=== PATIENT | female | born 1935 | race Caucasian/White ===

== ENCOUNTER → 2020-01-04 13:44 | Outpatient (CLI) | payer MEDICARE, SELFPAY ==
--- NOTE | ~2020-01-04 | MM_ITS ---
EXAMINATION: MM screening [facility]ath BI w josé miguel HISTORY: Screening mammogram TECHNIQUE: Craniocaudal and mediolateral oblique 3-D tomosynthesis images were obtained and synthetic 2-D images were generated. CAD analysis was submitted and interpreted. COMPARISON: Comparison to multiple prior studies sequentially, with oldest reviewed study dated 03/2015. BREAST PARENCHYMAL COMPOSITION: There are scattered areas of fibroglandular density. FINDINGS: Stable benign-appearing left breast masses. There is no evidence of suspicious mass, calcif ication, or architectural distortion to suggest malignancy in either breast. There has been no suspic ious interval change. IMPRESSION: 1. No mammographic evidence of malignancy. 2. Recommend routine screening mammography in one year. BI-RADS Category 2: Benign finding(s). Reviewed, dictated and finalized at location A.
== END ==
PROVIDERS: PCP Family Medicine Adolescent Medicine; Visit Provider Obstetrics & Gynecology
DX: Z12.31 Encounter for screening mammogram for malignant neoplasm of breast (principal)
CPT/HCPCS: 77063; 77067

== ENCOUNTER 2020-03-15 16:18 | Emergency (ER) | payer MEDICARE, SELFPAY ==
--- NOTE | ~2020-03-15 | XR_ITS ---
XR nasal bones min 3V DATE: 03/15/2020 17:01 INDICATION: Fall. Nose injury, pain TECHNIQUE: Left and right lateral views and [place] projection COMPARISON: None FINDINGS: Minimally displaced nasal bone fracture. The anterior maxillary spine is intact. IMPRESSION: Minimally displaced nasal bone fracture Reviewed, dictated and finalized at location A.
[2020-03-15 16:26] VITALS: BP 188/87; PULSE 109; RESP 20; TEMP 37.2; O2SAT 99
--- NOTE | 2020-03-15 16:37 | ED.WOUNDLAC ---
HPI - Wound/Laceration General Chief Complaint: Wound/Laceration Stated Complaint: Fall/Busted nose Time Seen by Provider: 03/15/20 16:37 Source: patient Mode of arrival: ambulatory Limitations: no limitations History of Present Illness HPI narrative: Loraine Barr is a 84 yo female with a PMH of arthritis, depression, who fell grinding across the grass after leaving work and hit her face on the sidewalk. Patient nose is bleeding from a very small lack on the bridge of her nose, her l right nostril shows evidence of having blood at the time of the incident. EMS was called she did not lose consciousness she has some bruising is beginning to show around her eyes abrasion across her forehead no plaques on her palms are on her knees. Rage concerns around the bleeding. Denies any neck pain or other facial pain Related Data Home Medications Medication Instructions Recorded Confirmed diclofenac sodium 75 mg 75 mg PO BID 07/26/19 03/15/20 tablet,delayed release fluoxetine 10 mg capsule 20 mg PO DAILY 07/26/19 03/15/20 fluticasone furoate 50 inh INHALATION DAILY 07/26/19 mcg/actuation blister powder for inhalation trazodone 50 mg tablet 50 mg PO TID 07/26/19 03/15/20 Allergies Allergy/AdvReac Type Severity Reaction Status Date / Time Sulfa (Sulfonamide Allergy Mild Rash Verified 09/06/19 12:55 Antibiotics) sulfamethoxazole Allergy Mild Rash Verified 09/06/19 12:55 codeine Allergy Unknown N/V Verified 09/06/19 12:55 nitrofurantoin Allergy Unknown Unknown Verified 09/06/19 12:55 nystatin Allergy Unknown Unknown Verified 09/06/19 12:55 Penicillins Allergy Unknown RASH, SEE Verified 09/06/19 12:55 TEXT Review of Systems Review of Systems: Narrative: CONSTITUTIONAL: Denies fever, chills, sweats. EYES: Denies visual changes, redness, discharge. ENT: Denies rhinorrhea, congestion, sore throat, otalgia. CARDIOVASCULAR: Denies chest pain, palpitations, edema. RESPIRATORY: Denies dyspnea, wheezing, cough GASTROINTESTINAL: Denies abdominal pain, nausea, vomiting, diarrhea. GENITOURINARY: Denies dysuria, hematuria, abnormal discharge SKIN: Denies rash or itching. Abrasion across face on the forehead and bridge of nose; tiny puncture across bridge of nose NEUROLOGIC: Denies numbness, or focal weakness. PSYCHIATRIC: Denies anxiety or depression. [facility] Past Medical History Medical History Arthritis Depression Osteoporosis Social History Social History Smoking status: Never smoker Alcohol intake: never Additional occupation/education comments: Library Gender identity (if verbalized by the patient): Female Comments At time of signature, I agree with nursing past medical, surgical, social and family history. There is no relevant family history pertinent to the presenting complaint. Exam Narrative: Exam Narrative: GENERAL: This is a well-nourished, well-developed patient, in moderate distress. HEAD: normocephalic, atraumatic. EYES: Sclera clear/white. Vision is grossly intact. EARS: External ears normal. Hearing grossly intact. NOSE: External nose normal without nasal discharge, nares without redness, no rhinorrhea. Right nostril has old blood not actively bleeding; bridge of nose has puncture that was bleeding, it is bruised around puncture and up onto her forehead, noted. Denies neck or facial bone pain on palpation THROAT: Mucous membranes moist, NECK: Neck supple, CARDIOVASCULAR: Regular rate and rhythm without murmurs, gallops, or rubs. RESPIRATORY: Clear to auscultation. Breath sounds equal bilaterally. No wheezes, rales, or rhonchi. GASTROINTESTINAL: Abdomen soft, SKIN: warm, intact with no suspicious lesions or rash, good texture and turgor. NEURO: awake, alert, and oriented to person, place and time. There were no obvious focal neurologic abnormalities. Steady gait EXTREMITIES
[2020-03-15] MEDS: TETANUS,DIPHTHERIA,AC PERTUSSIS ADULT (0.5 ML) BOOSTRIX IM (16:42)
== END 2020-03-15 17:17 | disposition home or self-care (01) ==
PROVIDERS: Emergency Provider Nurse Practitioner; PCP Family Medicine Adolescent Medicine
DX: S01.21XA Laceration without foreign body of nose, initial encounter (principal); W19.XXXA Unspecified fall, initial encounter; Z23 Encounter for immunization; M19.90 Unspecified osteoarthritis, unspecified site; F32.9 Major depressive disorder, single episode, unspecified; M81.0 Age-related osteoporosis without current pathological fracture
CPT/HCPCS: 12011; 70160; 90471; 90715; 99213; G0463

== ENCOUNTER → 2021-01-07 13:33 | Outpatient (CLI) | payer MEDICARE, SELFPAY ==
--- NOTE | ~2021-01-07 | MM_ITS ---
EXAMINATION: MM screening [facility] BI w josé miguel HISTORY: Screening mammogram TECHNIQUE: Craniocaudal and mediolateral oblique 3-D tomosynthesis images were obtained and synthetic 2-D images were generated. CAD analysis was submitted and interpreted. COMPARISON: 01/04/2020, 10/27/2018, 10/25/2017 BREAST PARENCHYMAL COMPOSITION: There are scattered areas of fibroglandular density. FINDINGS: There is a left breast mass with biopsy change in the stable mass in the anterior third of inner left breast. There is no evidence of suspicious mass, calcification, or architectural distortio n to suggest malignancy in either breast. There has been no suspicious interval change. IMPRESSION: 1. No mammographic evidence of malignancy. 2. Recommend routine screening mammography while the patient remains in good health. BI-RADS Category 2: Benign finding(s). Reviewed, dictated and finalized at location A. IMPRESSION: 1. No mammographic evidence of malignancy. 2. Recommend routine screening mammography while the patient remains in good he alth. BI-RADS Category 2: Benign finding(s).
== END ==
PROVIDERS: PCP Family Medicine Adolescent Medicine; Visit Provider Obstetrics & Gynecology
DX: Z12.31 Encounter for screening mammogram for malignant neoplasm of breast (principal)
CPT/HCPCS: 77063; 77067

== ENCOUNTER 2021-07-24 07:47 | Outpatient (CLI) | payer MEDICARE, SELFPAY ==
--- NOTE | 2021-07-24 08:48 | ECG_ITS ---
Measurements Intervals [place] Rate: 69 P: 48 [place]: 156 QRS: 16 QRSD: 89 T: 9 QT: 382 QTc: 411 Interpretive Statements SINUS RHYTHM BASELINE ARTIFACT- I, II, AVR, AVL, AVF NORMAL ECG Electronically Signed On 07-24-2021 9:18:18 TALENT ACQUISITION PROGRAM MANAGER by Harsha Monzon D.O.
[2021-07-24 09:19] LABS: Basophils Percent Auto 0.4 % (0.2-1.2); Eosinophils Absolute Auto 0.1 K/mm3 (0-0.3); Eosinophils Percent Auto 1.4 % (0-4.4); Hematocrit 40.5 % (37.0-47.0); Hemoglobin 13.3 g/dL (12.0-15.0); Immature Granulocyte Absolute 0.01 K/mm3 (0.00-0.031); Immature Granulocyte Percent A 0.2 % (0-0.5); Lymphocytes Absolute Auto 1.47 K/mm3 (0.9-3.2); Lymphocytes Percent Auto 26.3 % (18.3-44.2); Mean Corpuscular HGB Conc 32.8 g/dl (32-36); Mean Corpuscular Hemoglobin 30.1 pg (26-34); Mean Corpuscular Volume 91.6 fl (80-100); Mean Platelet Volume 9.8 fl (7.4-10.4); Monocytes Absolute Auto 0.4 K/mm3 (0.1-0.6); Monocytes Percent Auto 6.8 % (2.6-8.5); Neutrophils Absolute Auto 3.6 K/mm3 (1.3-6.7); Neutrophils Percent Auto 64.9 % (45.5-73.1); Platelet Count Result 250 k/mm3 (150-375); Red Blood Count 4.42 M/mm3 (4.2-5.4); Red Cell Distribution Width 14.1 % (11.5-14.5); White Blood Count 5.6 K/mm3 (4.5-10.0)
[2021-07-24 09:28] LABS: Albumin Level 4.6 g/dL (3.5-5.1); Estimated Glomerular Filt Rate 53; Glucose 117 mg/dL (65-110)
[2021-07-24 09:34] LABS: Urine Cotinine NEGATIVE
[2021-07-24 09:42] LABS: Hemoglobin A1C 5.2 % (<5.7)
== END 2021-07-24 07:48 | disposition home or self-care (01) ==
PROVIDERS: PCP Family Medicine Adolescent Medicine; Visit Provider Orthopaedic Surgery
DX: Z01.818 Encounter for other preprocedural examination (principal); M17.12 Unilateral primary osteoarthritis, left knee; Z51.81 Encounter for therapeutic drug level monitoring; Z79.899 Other long term (current) drug therapy
CPT/HCPCS: 80307; 82040; 82565; 82947; 83036; 85025; 87081; 93005

== ENCOUNTER → 2022-03-17 13:49 | Outpatient (CLI) | payer MEDICARE, SELFPAY ==
--- NOTE | ~2022-03-17 | MM_ITS ---
EXAMINATION: MM screening heath BI w josé miguel HISTORY: Screening mammogram TECHNIQUE: Craniocaudal and mediolateral oblique 3-D tomosynthesis images were obtained and synthetic 2-D images were generated. CAD analysis was submitted and interpreted. COMPARISON: 01/07/2021, 01/04/2020, 10/27/2018 bilateral screening mammogram examinations BREAST PARENCHYMAL COMPOSITION: There are scattered areas of fibroglandular density. FINDINGS: Stable circumscribed approximately 12 mm mass in the posterior outer mid left breast with a djacent biopsy marker; history of prior benign biopsy. There is a biopsy marker is noted in the anter ior inner mid left breast. There is no evidence of suspicious mass, calcification, or architectural d istortion to suggest malignancy in either breast. There has been no suspicious interval change. IMPRESSION: 1. No mammographic evidence of malignancy. 2. Recommend routine screening mammography in one year. BI-RADS Category 2: Benign finding(s). Reviewed, dictated and finalized at location A.
== END ==
PROVIDERS: PCP Family Medicine Adolescent Medicine; Visit Provider Obstetrics & Gynecology
DX: Z12.31 Encounter for screening mammogram for malignant neoplasm of breast (principal)
CPT/HCPCS: 77063; 77067

== ENCOUNTER → 2023-04-23 13:24 | Outpatient (CLI) | payer MEDICARE, SELFPAY ==
--- NOTE | ~2023-04-23 | MM_ITS ---
EXAMINATION: MM screening heath BI w josé miguel HISTORY: Screening TECHNIQUE: Craniocaudal and mediolateral oblique 3-D tomosynthesis images were obtained and synthetic 2-D images were generated. CAD analysis was submitted and interpreted. COMPARISON: Comparison to multiple prior studies sequentially, with oldest reviewed study dated 10/22. BREAST PARENCHYMAL COMPOSITION: There are scattered areas of fibroglandular density. FINDINGS: There is a developing asymmetry in the subareolar location of the right breast on MLO view. Stable left breast masses allowing for differences of technique. There are tissue markers from previ ous benign left breast biopsies. IMPRESSION: 1. Developing right breast asymmetry on MLO view. 2. Additional mammographic views and possible breast ultrasound are recommended. BI-RADS Category 0: Incomplete: Needs additional imaging evaluation. Reviewed, dictated and finalized at location A. IMPRESSION: 1. Developing right breast asymmetry on MLO view. 2. Additional mammographic views and possible breast ultrasound are recommended . BI-RADS Category 0: Incomplete: Needs additional imaging evaluation.
== END ==
PROVIDERS: PCP Family Medicine Adolescent Medicine; Visit Provider Family Medicine Adolescent Medicine
DX: Z12.31 Encounter for screening mammogram for malignant neoplasm of breast (principal); R92.8 Other abnormal and inconclusive findings on diagnostic imaging of breast
CPT/HCPCS: 77063; 77067

== ENCOUNTER → 2023-05-25 14:04 | Outpatient (CLI) | payer MEDICARE, SELFPAY ==
--- NOTE | ~2023-05-25 | MMUS_ITS ---
EXAMINATION: MM diagnostic heath RT w josé miguel, US breast RT complete HISTORY: Developing asymmetry reported in subareolar area of right breast on screening MLO view of TECHNIQUE: Additional 3-D tomosynthesis images of the right breast were performed and synthetic 2-D i mages were generated. CAD analysis was submitted and interpreted. High resolution complete right allie st ultrasound examination including all 4 quadrants and subareolar area was performed. COMPARISON: Serial annual screening mammograms dating from 04/23/2023 back to 01/04/2020 FINDINGS: MAMMOGRAPHIC FINDINGS: There is relatively stable appearance of the right breast mammographically. No suspicious mass or arc hitectural distortion is evident mammographically. No malignant calcification, skin thickening or ret raction. ULTRASOUND: 12:00 3 cm from nipple: There is an irregular hypoechoic approximately 2.2 x 3.2 mm area without inte rnal vascularity or posterior shadowing. Ultrasound-guided biopsy is recommended. 11:00 subareolar area: There is an irregular approximately 2.3 x 4.2 mm hypoechoic area with posterio r shadowing. There is suggestion of architectural distortion in this area. Ultrasound-guided biopsy i s recommended. No other significant abnormalities are detected. IMPRESSION: 1. Suspicious small masses at 12:00 3 cm from nipple and 11:00 subareolar area 2. Ultrasound-guided biopsy of these 2 areas is recommended. BI-RADS category 4, suspicious findings. Dr. Cárdenas telephoned the report and ultrasound-guided biopsy recommendations on 05/25/2023 [address] Jacobs. Reviewed, dictated and finalized at location A. AL INSPECTOR IMPRESSION: 1. Suspicious small masses at 12:00 3 cm from nipple and 11:00 subareolar area 2. Ultrasound-guided biopsy of these 2 areas is recommended. BI-RADS category 4, suspicious findings. Dr. Cárdenas telephoned the report and ultrasound-guided biopsy recommendations on 05/25/2023 [address] Jacobs.
== END ==
PROVIDERS: PCP Obstetrics & Gynecology; Visit Provider Family Medicine Adolescent Medicine
DX: R92.8 Other abnormal and inconclusive findings on diagnostic imaging of breast (principal)
CPT/HCPCS: 76641; 77061; 77065; G0279

== ENCOUNTER 2023-06-10 09:20 | Outpatient (CLI) | payer MEDICARE, SELFPAY ==
--- NOTE | ~2023-06-10 | MMUS_ITS ---
EXAMINATION: US breast biopsy RT w image, MM post biopsy invasive RT DATE: 06/10/2023 10:53 (accession [id number]), 06/10/2023 10:59 (accession [id number]) INDICATION: Patient presents for ultrasound-guided biopsy of two sonographically identified right jaswant ast masses. TECHNIQUE AND FINDINGS: With real-time scanning, only the mass described at the 12:00 location, 3 cm from the nipple on recen t ultrasound is identified. No discrete mass is identified at the 11:00 location in the subareolar br east. The risks and potential benefits of the procedure were discussed with the patient including ble eding and infection. A time out was performed. The skin of the right breast was prepared and draped i n usual sterile fashion. 1% lidocaine was used for superficial anesthesia. 1% lidocaine with epinephr ine was used for deep anesthesia. A vacuum-assisted biopsy needle was advanced through to the outer edge of the region of interest from a lateral approach utilizing sonographic guidance. A total of three tissue core samples were obtaine d through the lesion. A tissue marker clip was then placed at the biopsy site. Hemostasis was achieve d. A sterile bandage was applied. The patient tolerated procedure well and there was no evidence of immediate complication. The patient was given verbal instructions to return to the Emergency Department in the event of severe breast pa in or rapid breast enlargement. A two view right breast mammogram was obtained to document tissue mar ker clip placement. IMPRESSION: 1. Successful ultrasound-guided vacuum-assisted biopsy of right breast mass with tissue marker placem ent. Reviewed, dictated and finalized at location A. IED BEHAVIOR SCIENCE SPECIALIST IMPRESSION: 1. Successful ultrasound-guided vacuum-assisted biopsy of right breast mass wit h tissue marker placement.
== END 2023-06-10 09:21 | disposition home or self-care (01) ==
PROVIDERS: PCP Family Medicine Adolescent Medicine; Visit Provider Family Medicine Adolescent Medicine
DX: R92.8 Other abnormal and inconclusive findings on diagnostic imaging of breast (principal)
CPT/HCPCS: 19083; 88305; A4648

== ENCOUNTER 2023-11-03 07:00 | Outpatient (NON) | payer MEDICARE, SELFPAY | END 2023-11-03 07:01 | disposition home or self-care (01) | PROVIDERS: PCP Family Medicine Adolescent Medicine; Visit Provider Internal Medicine Gastroenterology | DX: Z12.11 Encounter for screening for malignant neoplasm of colon (principal); Z83.719 Family history of colon polyps, unspecified | CPT/HCPCS: 88305 ==

== ENCOUNTER 2023-11-03 08:36 | Day surgery (SDC) | payer MEDICARE, SELFPAY ==
[2023-10-28 09:47] VITALS: BMI 29.7
[2023-10-28 13:02] VITALS: BMI 31.2
--- NOTE | 2023-11-03 08:32 | WPDANESEPPF ---
Anes - Initial Pre Proc Eval Procedure: Operation Date: 11/03/23 11:30 Proposed Procedures p Diagnostic Colonoscopy - Colten Lyon MD Date/Time: 11/03/23 08:32 Surgeon: Colten Lyon MD Pre Op Diagnosis: Family HX Malignant Neoplasm of Digestive Organs Patient Data Age: 87 Gender: F Height: 1.55 m Weight: 75 kg Allergies Allergy/AdvReac Type Severity Reaction Status Date / Time Sulfa (Sulfonamide Allergy Mild Rash Verified 11/03/23 10:41 Antibiotics) sulfamethoxazole Allergy Mild Rash Verified 11/03/23 10:41 clindamycin Allergy Unknown Unknown Verified 11/03/23 10:41 codeine Allergy Unknown N/V Verified 11/03/23 10:41 nitrofurantoin Allergy Unknown Unknown Verified 11/03/23 10:41 nystatin Allergy Unknown Unknown Verified 11/03/23 10:41 Penicillins Allergy Unknown SEE TEXT Verified 11/03/23 10:41 Home Medications Medication Instructions Recorded Confirmed Type acetaminophen 500 mg tablet 500 mg PO Q6H PRN Pain 07/24/21 11/03/23 History calcium carbonate 600 mg-vitamin 1 cap PO DAILY 07/24/21 11/03/23 History D3 10 mcg (400 unit) capsule yakdxewi-wiw-wrhzn ac 400 1 tablet PO DAILY 07/24/21 11/03/23 History mcg-calcium carb 500 mg-vit K1 20 mcg tablet trazodone 50 mg tablet 50 mg PO QHS #90 tabs 12/02/22 11/03/23 Rx diclofenac sodium 75 mg 75 mg PO BID #180 tabs 06/22/23 11/03/23 Rx tablet,delayed release fluoxetine 40 mg capsule 40 mg PO DAILY #90 caps 08/04/23 11/03/23 Rx fluticasone propionate 50 See Rx Instructions .Route 09/13/23 11/03/23 Rx mcg/actuation nasal .COMPLEX #48 grams spray,suspension Patient hx anesthesia problems: none Family hx anesthesia problems: none Results Review: All pre-operative results and documents have been reviewed as part of the pre-operative evaluation. [facility] Past Medical History Medical History (Updated 11/03/23 @ 08:33 by Shiva Ackerman, ) Anxiety Arthritis Depression Osteoarthritis of left knee Osteoporosis Panic attack Surgical History Surgical History History of colonoscopy (05/2018) Family History Family History Mother Cerebrovascular accident Hypertension Social History Social History Smoking status: Never smoker Additional smoking assessment comments: DENIES ANY FORM OF TOBACCO USE Alcohol intake: never Substance use type: does not use Lack of Transportation: No Lack of Food: Never True Current Housing: I Have Housing Concerned About Future Housing: No Difficulty Paying Gas/Electric Bills: No Difficulty Paying for Meds: No Currently Unemployed: No Education: High School Diploma/GED Difficulty w/ Childcare or Family Care: No Living arrangements: alone 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 Informed Consent: The patient's anesthetic plan and its attendant risks and benefits were discussed with the patient/family/POA. Questions were solicited and answers provided to the satisfaction of the patient/family/POA.
[2023-11-03 10:55] VITALS: BMI 31.0
[2023-11-03 10:59] VITALS: BP 152/96; PULSE 89; RESP 18; TEMP 37.3; O2SAT 100
[2023-11-03] MEDS: LACTATED RINGERS 1,000 ML 150 ML IV CONT (11:12)
--- NOTE | 2023-11-03 11:21 | PM.HPGS ---
History of Present Illness History of Present Illness Consent: Risks, benefits, and alternatives have been discussed and questions answered. Patient agrees to proceed with procedure. Chief complaint: Family HX Malignant Neoplasm of Digestive Organs Narrative: Loraine Barr is a 87 year old female presents for colonoscopy. Patient reports that her current weight appetite and bowel movements are normal. Patient denies abdominal pain. She has had no bleeding. Family history is significant that her children have had colon polyps, her father had colon polyps, her grandparent had colon cancer. Patient presents today for surveillance colonoscopy. She still is active and works. Review of Systems Review of Systems: All systems reviewed & are unremarkable except as noted in HPI and below PMFSH Past Medical History Medical History (Updated 11/03/23 @ 11:23 by Colten Lyon MD) Anxiety Arthritis Depression Osteoarthritis of left knee Osteoporosis Panic attack Surgical History Surgical History History of colonoscopy (05/2018) Family History Family History Mother Cerebrovascular accident Hypertension Social History Social History Smoking status: Never smoker Additional smoking assessment comments: DENIES ANY FORM OF TOBACCO USE Alcohol intake: never Substance use type: does not use Lack of Transportation: No Lack of Food: Never True Current Housing: I Have Housing Concerned About Future Housing: No Difficulty Paying Gas/Electric Bills: No Difficulty Paying for Meds: No Currently Unemployed: No Education: High School Diploma/GED Difficulty w/ Childcare or Family Care: No Living arrangements: alone 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 Gender identity (if verbalized by the patient): Female Spiritual care concerns: No Meds Home Medications and Allergies Home Medications Medication Instructions Recorded Confirmed Type acetaminophen 500 mg tablet 500 mg PO Q6H PRN Pain 07/24/21 11/03/23 History calcium carbonate 600 mg-vitamin 1 cap PO DAILY 07/24/21 11/03/23 History D3 10 mcg (400 unit) capsule kfdpfhav-iwx-zfrwv ac 400 1 tablet PO DAILY 07/24/21 11/03/23 History mcg-calcium carb 500 mg-vit K1 20 mcg tablet trazodone 50 mg tablet 50 mg PO QHS #90 tabs 12/02/22 11/03/23 Rx diclofenac sodium 75 mg 75 mg PO BID #180 tabs 06/22/23 11/03/23 Rx tablet,delayed release fluoxetine 40 mg capsule 40 mg PO DAILY #90 caps 08/04/23 11/03/23 Rx fluticasone propionate 50 See Rx Instructions .Route 09/13/23 11/03/23 Rx mcg/actuation nasal .COMPLEX #48 grams spray,suspension Allergies Allergy/AdvReac Type Severity Reaction Status Date / Time Sulfa (Sulfonamide Allergy Mild Rash Verified 11/03/23 10:41 Antibiotics) sulfamethoxazole Allergy Mild Rash Verified 11/03/23 10:41 clindamycin Allergy Unknown Unknown Verified 11/03/23 10:41 codeine Allergy Unknown N/V Verified 11/03/23 10:41 nitrofurantoin Allergy Unknown Unknown Verified 11/03/23 10:41 nystatin Allergy Unknown Unknown Verified 11/03/23 10:41 Penicillins Allergy Unknown SEE TEXT Verified 11/03/23 10:41 Vital Signs Vital Signs - 24 hr 11/03/23 10:59 Temperature 99.1 F Pulse Rate 89 Respiratory Rate 18 Blood Pressure 152/96 H Pulse Oximetry 100 Oxygen Delivery Room Air Exam Narrative: Physical exam reveals patient to be alert. Signs stable. HEENT exam is unremarkable. Patient is anicteric. Lungs are clear to auscultation and percussion. Heart is without murmur or extra sounds. Abdomen bowel sounds are present soft nontender with no hepatosplenomegaly. Digital external rectal exam normal. Assessment and Plan Assessment and plan (1) Family history of colonic polyps:
[2023-11-03 11:49] VITALS: BP 151/77; PULSE 91; RESP 16; O2SAT 99
[2023-11-03 11:59] VITALS: BP 130/79; PULSE 78; RESP 16; O2SAT 100
[2023-11-03 12:09] VITALS: BP 146/81; PULSE 84; RESP 16; O2SAT 99
--- NOTE | 2023-11-03 12:11 | SUR.PHASEII ---
1155; PT RUBBING LOW, MIDDLE ABDOMEN. STATES FEELS CRAMPY. PT LAYING ON LEFT SIDE. KNEES UP. WARM FOLDED BLANKET APPLIED TO LOW ABDOMEN. DR CHAVIRA NOTIFIED. HE WENT TO SPEAK WITH PT AND DAUGHTER 1210; PT AWAKE AND ALERT. STATES LOW ABDOMEN FEELS BETTER NOW.
--- NOTE | 2023-11-03 13:28 | WPDANESPN ---
Anes - Prog Note Post-Op Date/Time: 11/03/23 13:28 Cardiovascular status: normal Respiratory status: normal Airway patency: baseline Mental status: baseline Post-Op hydration status: normal Vital Signs: Last Vital Signs Temp 37.3 C 11/03/23 10:59 Pulse 84 11/03/23 12:09 Resp 16 11/03/23 12:09 BP 146/81 H 11/03/23 12:09 Pulse Ox 99 11/03/23 12:09 O2 Del Method Room Air 11/03/23 12:09 Pain Score (VAS): 0 I/O: Intake & Output 11/02/23 11/03/23 11/03/23 23:59 07:59 15:59 Intake Total 150 Balance 150 Post-procedural complaints: none Patient Feedback: Patient satisfied with anesthetic care. Other Findings: Patient vital signs back to baseline. Patient denies nausea and vomiting. Patient's pain under control. Patient OK for discharge.
== END 2023-11-03 12:25 | disposition home or self-care (01) ==
PROVIDERS: PCP Family Medicine Adolescent Medicine; Visit Provider Internal Medicine Gastroenterology
PROC: 0DJD8ZZ Inspection of Lower Intestinal Tract, Via Natural or Artificial Opening Endoscopic (ICD-10-PCS; CPT 45378; principal; 2023-11-03 11:30)
DX: Z83.718 Family history of other colon polyps (principal); Z80.0 Family history of malignant neoplasm of digestive organs; D12.2 Benign neoplasm of ascending colon; K57.30 Diverticulosis of large intestine without perforation or abscess without bleeding; K64.8 Other hemorrhoids
CPT/HCPCS: 45380

== ENCOUNTER 2023-11-04 12:10 | Observation (INO) | payer MEDICARE, SELFPAY ==
--- NOTE | ~2023-11-04 | CT_ITS ---
EXAMINATION: CT abdomen pelvis w con DATE: 11/04/2023 13:17 INDICATION: Abdomen pain post colonoscopy TECHNIQUE: Computed tomography (CT) of the abdomen and pelvis was performed with 100 cc Omnipaque 350 intravenous contrast. The dose-length product was 569.84 mGy-cm. Automated exposure control and iter ative reconstruction technique were employed. COMPARISON: No prior studies for comparison. 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 Heart size normal. No significant pleural or pe ricardial effusion. Fatty infiltration of the liver. Gallbladder contains multiple stones. The spleen , pancreas, adrenal glands and kidneys are unremarkable. 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 There are dilated small bowel loops with air-fluid levels in the left abdomen which t ransitions in a left inguinal hernia. Small amount of fluid present in the hernia sac. No significant vascular abnormality. No lymphadenopathy. Small hiatal hernia. Severe lumbar spondylosis. IMPRESSION: 1. Small bowel obstruction with transition in left inguinal hernia. 2: Cholelithiasis. Reviewed, dictated and finalized at location B.
[2023-11-04 12:25] VITALS: BP 192/72; PULSE 96; RESP 16; TEMP 36.5; O2SAT 97
[2023-11-04 13:07] LABS: Basophils Percent Auto 0.2 % (0.2-1.2); Eosinophils Percent Auto 0.3 % (0-4.4); Hematocrit 40.5 % (37.0-47.0); Hemoglobin 13.4 g/dL (12.0-15.0); Immature Granulocyte Absolute 0.02 K/mm3 (0.00-0.031); Immature Granulocyte Percent A 0.3 % (0-0.5); Lymphocytes Absolute Auto 1.35 K/mm3 (0.9-3.2); Lymphocytes Percent Auto 20.7 % (18.3-44.2); Mean Corpuscular HGB Conc 33.1 g/dl (32-36); Mean Corpuscular Hemoglobin 30.5 pg (26-34); Mean Platelet Volume 9.6 fl (7.4-10.4); Monocytes Absolute Auto 0.4 K/mm3 (0.1-0.6); Monocytes Percent Auto 6.8 % (2.6-8.5); Neutrophils Absolute Auto 4.7 K/mm3 (1.3-6.7); Neutrophils Percent Auto 71.7 % (45.5-73.1); Platelet Count Result 239 k/mm3 (150-375); Red Cell Distribution Width 13.7 % (11.5-14.5); White Blood Count 6.5 K/mm3 (4.5-10.0)
[2023-11-04 13:20] LABS: Estimated CRCL calculation 34 ml/min; Estimated Glomerular Filt Rate 53
[2023-11-04 13:23] LABS: Alanine Aminotransferase 33 U/L (6-35); Albumin Level 4.9 g/dL (3.5-5.1); Alkaline Phosphatase 104 U/L (38-126); Anion Gap 11 mmol/L (4-12); Aspartate Amino Transferase 58 U/L (14-36); Bilirubin,Total 0.7 mg/dL (0.2-1.3); Blood Urea Nitrogen 22 mg/dL (7-17); Calcium 10.4 mg/dL (8.4-10.2); Carbon Dioxide 24 mmol/L (22-30); Chloride 106 mmol/L (98-107); Estimated CRCL calculation 37 ml/min; Estimated Glomerular Filt Rate 60; Glucose 130 mg/dL (65-110); Lactic Acid Reflex 1.1 mmol/L (0.7-2.0); Lipase 105 U/L (23-300); Potassium 3.7 mmol/L (3.4-5.0); Sodium 141 mmol/L (137-145)
--- NOTE | 2023-11-04 13:27 | ED.ABDPAIN ---
HPI - Abdominal Pain General Chief Complaint: Abdominal Pain <Neto Patel APRN - Last Filed: 11/04/23 16:01> Stated Complaint: abdominal pain after colonoscopy <Neto Patel APRN - Last Filed: 11/04/23 16:01> Time Seen by Provider: 11/04/23 12:55 <Neto Patel APRN - Last Filed: 11/04/23 16:01> Source: patient <Neto Patel APRN - Last Filed: 11/04/23 16:01> Mode of arrival: ambulatory <Neto Patel APRN - Last Filed: 11/04/23 16:01> Limitations: no limitations <Neto Patel APRN - Last Filed: 11/04/23 16:01> History of Present Illness HPI narrative: Loraine is an 87-year-old female patient presenting to the clinic today with complaints of left sided abdominal pain/not passing gas after colonoscopy yesterday. Had nausea this morning and belched and that has improved. Denies any vomiting <Neto Patel APRN - Last Filed: 11/04/23 16:01> Related Data Home Medications: Home Medications Medication Instructions Recorded Confirmed acetaminophen 500 mg tablet 500 mg PO Q6H PRN Pain 07/24/21 11/04/23 calcium carbonate 600 mg-vitamin 1 cap PO DAILY 07/24/21 11/04/23 D3 10 mcg (400 unit) capsule tnnprkco-fda-gqbri ac 400 1 tablet PO DAILY 07/24/21 11/04/23 mcg-calcium carb 500 mg-vit K1 20 mcg tablet <Neto Patel APRN - Last Filed: 11/04/23 16:01> Allergies/Adverse Reactions: Allergies Allergy/AdvReac Type Severity Reaction Status Date / Time Sulfa (Sulfonamide Allergy Mild Rash Verified 11/04/23 16:57 Antibiotics) sulfamethoxazole Allergy Mild Rash Verified 11/04/23 16:57 clindamycin Allergy Unknown Unknown Verified 11/04/23 16:57 codeine Allergy Unknown N/V Verified 11/04/23 16:57 nitrofurantoin Allergy Unknown Unknown Verified 11/04/23 16:57 nystatin Allergy Unknown Unknown Verified 11/04/23 16:57 Penicillins Allergy Unknown SEE TEXT Verified 11/04/23 16:57 <Neto Patel APRN - Last Filed: 11/04/23 16:01> Review of Systems Review of Systems: Pertinent positives per HPI. Patient denies any fever, chills, rash, headache, visual changes, dizziness, cough, runny nose, sore throat, shortness of breath, chest pain, palpitations, nausea, vomiting, diarrhea, constipation, or any urinary issues. <Neto Patel APRN - Last Filed: 11/04/23 16:01> [facility] Past Medical History Medical History: Medical History Anxiety Arthritis Depression Osteoarthritis of left knee Osteoporosis Panic attack <Neto Patel APRN - Last Filed: 11/04/23 16:01> Surgical History Surgical History: Surgical History History of colonoscopy (05/2018) <Neto Patel APRN - Last Filed: 11/04/23 16:01> Family History Family History: Family History Mother Cerebrovascular accident Hypertension <Neto Patel APRN - Last Filed: 11/04/23 16:01> Social History Social History: Social History Smoking status: Never smoker Additional smoking assessment comments: DENIES ANY FORM OF TOBACCO USE Alcohol intake: never Substance use: never Substance use type: does not use Do You Feel Safe in your Home?: Yes Lack of Transportation: No Lack of Food: Never True Current Housing: I Have Housing Concerned About Future Housing: No Difficulty Paying Gas/Electric Bills: No Difficulty Paying for Meds: No Currently Unemployed: No Education: High School Diploma/GED Difficulty w/ Childcare or Family Care: No Living arrangements: alone 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
[2023-11-04 14:03] VITALS: BP 179/95; PULSE 85; RESP 20; O2SAT 95
[2023-11-04] MEDS: SODIUM CHLORIDE 0.9% IV 1,000 ML 150 ML IV CONT (14:04)
[2023-11-04 14:23] LABS: Appearance Urine Clear (Clear); Bacteria Urine None Seen /hpf; Bilirubin Urine Negative (Negative); Blood Urine Trace (Negative); Color Urine Yellow (Yellow); Glucose Urine UA Negative (Negative); Ketones Urine 1+ mg/dL (Negative); Leukocyte Esterase Ur 1+ LEU/UL (Negative); Need Manual Microscopic Reviewed; Nitrate Urine Negative (Negative); Non Pathogenic Casts 0-2; Protein Urine Trace mg/dL (Negative); RBC Urine 0-2 /hpf (0-2); Specific Grav Ur 1.044 (1.001-1.035); Squamous Epithelial Cell Urine None Seen /hpf (Few); Urobilinogen Urine 0.2 mg/dL (<2.0); WBC Urine 0-5 /hpf (0-3); pH Urine 5.5 (5.0-9.0)
[2023-11-04 14:24] LABS: Add Urine Microscopic? YES
[2023-11-04] MEDS: ONDANSETRON INJ 4 MG/2 ML VIAL IV PUSH (14:29)
[2023-11-04] MEDS: HYDROmorphone HCL INJ (*CRX) 1 MG/ML SYR 0.5 MG IV PUSH (14:30)
[2023-11-04 15:21] VITALS: PULSE 80; RESP 20; O2SAT 96
[2023-11-04 15:40] VITALS: BP 169/89; PULSE 88; RESP 20; O2SAT 97
--- NOTE | 2023-11-04 16:22 | ADMGEN ---
This patient, Loraine Barr, was admitted to Medical Room 243-01. Patient/family oriented to hospital policies and general routines including ID bracelet, bed and alarms, visiting hours, pain management, procedures, bathroom and other care routines, personal items, smoking policy, room service/diet, and visiting hours. Information on how to activate the Rapid Response Team has been discussed. Patient/Family are encouraged to report perceived risks to care and to ask questions if they do not understand what they are told or what they should do.
[2023-11-04 16:23] VITALS: BP 164/69; PULSE 85; RESP 17; TEMP 36.1; O2SAT 100
[2023-11-04 16:28] VITALS: BMI 39.9
--- NOTE | 2023-11-04 18:28 | PM.IMHP ---
H&P: HPI History of Present Illness Date/Time: 11/04/23 18:28 Chief Complaint: Abdominal pain Narrative: Patient is an 87-year-old woman who had colonoscopy yesterday. Since the colonoscopy, she has not had a bowel movement or passed gas from her rectum. She was having lower abdominal pain and came to the emergency room. Evaluation there included a CT scan which showed an incarcerated left inguinal hernia with small-bowel obstruction due to the incarceration. Patient had no knowledge that she had an inguinal hernia prior to today. With the assistance of the department of anesthesia and some sedation, I was able to reduce the incarcerated hernia in the emergency room. Patient is now admitted for observation. Assuming we do not developed a recurrent incarceration, she can probably be discharged tomorrow with plans for repair of the hernia in the fairly near future as an outpatient. Colonoscopy yesterday did show only a single small sessile ascending colon polyp, likely benign but pathology pending. Review of Systems Review of Systems: All systems reviewed & are unremarkable except as noted in HPI and below (HPI) [facility] Past Medical History Medical History Anxiety Arthritis Depression Osteoarthritis of left knee Osteoporosis Panic attack Surgical History Surgical History History of colonoscopy (05/2018) Family History Family History Mother Cerebrovascular accident Hypertension Social History Social History Smoking status: Never smoker Additional smoking assessment comments: DENIES ANY FORM OF TOBACCO USE Alcohol intake: never Substance use: never Substance use type: does not use Do You Feel Safe in your Home?: Yes Lack of Transportation: No Lack of Food: Never True Current Housing: I Have Housing Concerned About Future Housing: No Difficulty Paying Gas/Electric Bills: No Difficulty Paying for Meds: No Currently Unemployed: No Education: High School Diploma/GED Difficulty w/ Childcare or Family Care: No Living arrangements: alone 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 Gender identity (if verbalized by the patient): Female Spiritual care concerns: No Meds Home Medications and Allergies Home Medications Medication Instructions Recorded Confirmed Type acetaminophen 500 mg tablet 500 mg PO Q6H PRN Pain 07/24/21 11/04/23 History calcium carbonate 600 mg-vitamin 1 cap PO DAILY 07/24/21 11/04/23 History D3 10 mcg (400 unit) capsule iltevaju-pdj-kgcdv ac 400 1 tablet PO DAILY 07/24/21 11/04/23 History mcg-calcium carb 500 mg-vit K1 20 mcg tablet trazodone 50 mg tablet 50 mg PO QHS #90 tabs 12/02/22 11/04/23 Rx diclofenac sodium 75 mg 75 mg PO BID #180 tabs 06/22/23 11/04/23 Rx tablet,delayed release fluoxetine 40 mg capsule 40 mg PO DAILY #90 caps 08/04/23 11/04/23 Rx fluticasone propionate 50 See Rx Instructions .Route 09/13/23 11/04/23 Rx mcg/actuation nasal .COMPLEX #48 grams spray,suspension Allergies Allergy/AdvReac Type Severity Reaction Status Date / Time Sulfa (Sulfonamide Allergy Mild Rash Verified 11/04/23 16:57 Antibiotics) sulfamethoxazole Allergy Mild Rash Verified 11/04/23 16:57 clindamycin Allergy Unknown Unknown Verified 11/04/23 16:57 codeine Allergy Unknown N/V Verified 11/04/23 16:57 nitrofurantoin Allergy Unknown Unknown Verified 11/04/23 16:57 nystatin Allergy Unknown Unknown Verified 11/04/23 16:57 Penicillins Allergy Unknown SEE TEXT Verified 11/04/23 16:57 Vital Signs Vital Signs - 24 hr 11/04/23 12:25 11/04/23 14:03 11/04/23 15:21 Temperature 36.5 C Pulse Rate 96 85 80 Respiratory Rate 16 20 20 Blood Pressure 192/72 H 179/95 H Pulse Oximetry 97 95
[2023-11-04] MEDS: DICLOFENAC SOD 75 MG TABLET.EC PO (18:45)
[2023-11-04 19:28] VITALS: BP 175/62; PULSE 77; RESP 18; TEMP 36.9; O2SAT 100
[2023-11-04] MEDS: traZODone HCL 50 MG TABLET PO (20:03)
[2023-11-04] MEDS: FLUoxetine HCL 20 MG CAPSULE 40 MG PO (20:03)
[2023-11-04] MEDS: SODIUM CHLORIDE 0.9% IV 1,000 ML 125 ML IV CONT (20:05)
[2023-11-05] MEDS: SODIUM CHLORIDE 0.9% IV 1,000 ML 125 ML IV CONT (04:55)
[2023-11-05 05:11] VITALS: BP 134/70; PULSE 66; RESP 18; TEMP 36.5; O2SAT 96
[2023-11-05] MEDS: CALCIUM/VITAMIN D 500 MG/5 MCG (200 I.U.) TABLET PO (08:35)
[2023-11-05] MEDS: THERAPEUTIC MULTIVITAMINS/MINERALS TAB (*BKC) 1 TABLET PO (08:35)
[2023-11-05] MEDS: DICLOFENAC SOD 75 MG TABLET.EC PO (08:35)
[2023-11-05 08:43] VITALS: O2SAT 97
--- NOTE | 2023-11-05 10:27 | PM.DS ---
DS: Admitting Diagnosis Discharge Date 11/05/2023 Admitting Diagnosis Incarcerated left inguinal hernia Small-bowel obstruction due to above DS: Discharge Diagnosis Discharge Diagnosis (1) Incarcerated left inguinal hernia: Code(s): K40.30 - Unilateral inguinal hernia, with obstruction, without gangrene, not specified as recurrent Status: Acute Assessment and Plan: Reduced in the emergency room per Dr. Sanabria with sedation per anesthesia department (2) SBO (small bowel obstruction): Code(s): K56.609 - Unspecified intestinal obstruction, unspecified as to partial versus complete obstruction Status: Acute Assessment and Plan: Relieved with reduction of the left inguinal hernia. DS: Summary Hospital Course Hospital Course: Patient had a routine colonoscopy on 11/03/2023. A single sessile benign-appearing polyp was found and removed. Pathology is pending on the polyp. After she got home, she noticed that she was not passing gas or bowel movement. She then developed lower abdominal pain and came to the emergency room. Exam and imaging in the emergency room showed a small-bowel obstruction with transition point at an incarcerated left inguinal hernia. I saw the patient in the emergency room. At my request, members of the anesthesia department came to the emergency room and provided some sedation. I was able to reduce the incarcerated hernia. Patient felt much better but was observed overnight. She had no recurrence of the pain and had a good appetite. She was ambulating back to her usual. She is discharged today with plans for robotic laparoscopic repair of her left inguinal hernia to be made. Status at Discharge Functional status at discharge: independent ambulation Overall status at discharge: patient is progressing back to baseline Time Spent with Patient Time attestation: Total time spent providing and/or coordinating discharge services: Time spent: Less than 30 minutes Exam Const: General: comfortable and no acute distress Orientation/consciousness: patient oriented x3 GI: Inspection: normal to inspection, non-distended and no visible herniation GI Palp: Yes Soft to palpation, No Tenderness to palpation present (GI), No Guarding due to palpation present (GI), No Hernia present (Patient only checked in the supine position), No Palpable mass present and No Rebound tenderness present Auscultation: normal bowel sounds Neuro: General: patient oriented x3 and no focal motor deficits Extrem: General: no calf tenderness and no edema Psych: Affect: normal affect Insight: Good insight present (Psych) Judgement: Good judgement present (Psych) DS: Data Data Completed and Pending Labs on day of discharge: Labs from last 24 hours 11/04/23 11/04/23 11/04/23 14:01 13:08 13:01 WBC 6.5 RBC 4.40 Hgb 13.4 Hct 40.5 MCV 92.0 MCH 30.5 MCHC 33.1 RDW 13.7 Plt Count 239 MPV 9.6 Immature Gran % (Auto) 0.3 Neut % (Auto) 71.7 Lymph % (Auto) 20.7 [place] % (Auto) 6.8 Eos % (Auto) 0.3 Baso % (Auto) 0.2 Lymph # (Auto) 1.35 [place] # (Auto) 0.4 Eos # (Auto) 0.0 Baso # (Auto) 0.0 Abs Immat Gran (auto) 0.02 Absolute Neuts (auto) 4.7 Absolute Nucleated RBC 0.000 Nucleated RBC % 0.0 Sodium 141 Potassium 3.7 Chloride 106 Carbon Dioxide 24 Anion Gap 11 BUN 22 H Creatinine 1.00 0.90 Estim Creat Clear Calc 34 37 Estimated GFR 53 L 60 Glucose 130 H Lactic Acid 1.1 Calcium 10.4 H Total Bilirubin 0.7 AST 58 H ALT 33 Alkaline Phosphatase 104 Total Protein 8.0 Albumin 4.9 Lipase 105 Urine Color Yellow Urine Appearance Clear Urine pH 5.5 Ur Specific [place] 1.044 H Urine Protein Trace Urine Glucose (UA) Negative Urine Ketones 1+ H Ur Blood (Man) Trace Urine Nitrate Negative Urine Bilirubin Negative Urine Urobilinogen 0.2 Add Ur Micr
== END 2023-11-05 11:55 | disposition home or self-care (01) ==
LOC: ANHED 15:25 → ANH2MED 15:42
PROVIDERS: Admitting Provider Surgery; Emergency Provider Nurse Practitioner Family; PCP Family Medicine Adolescent Medicine; Visit Provider Surgery
DX: K40.30 Unilateral inguinal hernia, with obstruction, without gangrene, not specified as recurrent (principal); K56.609 Unspecified intestinal obstruction, unspecified as to partial versus complete obstruction; M81.0 Age-related osteoporosis without current pathological fracture; F41.9 Anxiety disorder, unspecified; F32.A Depression, unspecified
CPT/HCPCS: 36415; 74177; 80053; 81001; 83605; 83690; 85025; 96361; 96374; 96375; 99285; A9270; G0378; J1170; J2405; J7030; Q9967

== ENCOUNTER 2023-11-30 12:52 | Outpatient (CLI) | payer MEDICARE, SELFPAY ==
--- NOTE | ~2023-11-30 | XR_ITS ---
EXAMINATION: XR chest 2V 11/30/2023 13:40 INDICATION: Dyspnea PROCEDURE: 2 view chest COMPARISON: No prior studies for comparison. The FINDINGS: The lungs are clear. The cardiomediastinal silhouette is within normal limits. There are no pleural effusions. There is no pneumothorax suspected. IMPRESSION: 1: NO ACUTE CARDIOPULMONARY DISEASE. Reviewed, dictated and finalized at location B.
--- NOTE | 2023-11-30 13:08 | ECG_ITS ---
SEE SCANNED COPY FOR CONFIRMED REPORT MTDD
[2023-11-30 13:31] LABS: Basophils Percent Auto 0.2 % (0.2-1.2); Eosinophils Absolute Auto 0.1 K/mm3 (0-0.3); Eosinophils Percent Auto 0.9 % (0-4.4); Hematocrit 35.8 % (37.0-47.0); Hemoglobin 11.9 g/dL (12.0-15.0); Immature Granulocyte Absolute 0.06 K/mm3 (0.00-0.031); Immature Granulocyte Percent A 0.7 % (0-0.5); Lymphocytes Absolute Auto 1.87 K/mm3 (0.9-3.2); Lymphocytes Percent Auto 21.5 % (18.3-44.2); Mean Corpuscular HGB Conc 33.2 g/dl (32-36); Mean Corpuscular Hemoglobin 30.5 pg (26-34); Mean Corpuscular Volume 91.8 fl (80-100); Mean Platelet Volume 9.2 fl (7.4-10.4); Monocytes Absolute Auto 0.5 K/mm3 (0.1-0.6); Monocytes Percent Auto 5.7 % (2.6-8.5); Neutrophils Absolute Auto 6.2 K/mm3 (1.3-6.7); Platelet Count Result 291 k/mm3 (150-375); Red Cell Distribution Width 13.9 % (11.5-14.5); White Blood Count 8.7 K/mm3 (4.5-10.0)
[2023-11-30 13:41] LABS: Anion Gap 5 mmol/L (4-12); Blood Urea Nitrogen 31 mg/dL (7-17); Calcium 9.7 mg/dL (8.4-10.2); Carbon Dioxide 28 mmol/L (22-30); Chloride 106 mmol/L (98-107); Estimated Glomerular Filt Rate 47; Glucose 109 mg/dL (65-110); Potassium 4.9 mmol/L (3.4-5.0); Sodium 139 mmol/L (137-145)
== END 2023-11-30 12:53 | disposition home or self-care (01) ==
LOC: ANHSURGERY 12:57
PROVIDERS: PCP Family Medicine Adolescent Medicine; Visit Provider Surgery
DX: Z01.818 Encounter for other preprocedural examination (principal); K40.30 Unilateral inguinal hernia, with obstruction, without gangrene, not specified as recurrent
CPT/HCPCS: 36415; 71046; 80048; 85025; 86850; 86900; 86901; 93005

== ENCOUNTER 2023-12-07 00:28 | Day surgery (SDC) | payer MEDICARE, SELFPAY ==
--- NOTE | 2023-11-25 11:25 | PC.NURSE ---
Report to the Outpatient Waiting Room, entrance under the green pavilion located off [facility], at time _0730 AM on date _12/07/23 . Planned Procedure Time9:30 AM: . Time changes happen often and if your time is changed the preop area will call you the afternoon before. - You and your visitor will be asked to self-screen and do not enter if you have any COVID symptoms. - A mask is optional within the hospital at this time. Patients may have clear liquids (water, carbonated beverages, clear teas, apple juice) until 3 hours prior to surgery ( 6:30 AM)with a maximum of 20 ounces. - No food from midnight until time of surgery - Infants may have breast milk until 4 hours before surgery, infant formula 6 hours prior to surgery. - Children will be allowed to drink immediately following surgery. If applicable, please bring a bottle or sippy cup to assist with drinking. Juice, water, soda, and popsicles are readily available. For infants on formula, please bring formula the day of surgery. Pacifiers are allowed. Take the following medications with a SIP of water the morning of surgery: ___FLUOXETINE DO NOT STOP ANY OF YOUR OTHER PRESCRIPTION MEDICATIONS PRIOR TO SURGERY ?EXCEPT THE FOLLOWING Medications to discontinue per physician ALL VITAMINS AND SUPPLEMENTS 3 DAYS PRE OP.LAST DOSE 12/03/23 Please no make-up, nail haitian, hairspray, perfume, deodorant, or body powder the day of surgery. No jewelry (including any body piercings) or valuables the day of surgery, leave them at home. Please take a shower or bath the night before, or the morning of, surgery with an antibacterial soap. Wear comfortable, loose fitting clothing. Children are encouraged to wear pajamas. - Jewelry must be removed prior to entering the operating room. Rings and piercings that are not removed may be cut off. - The hospital will not accept responsibility for valuables. - Please leave all valuables, including medications, at home the day of surgery. If you are going home after surgery, a licensed tank driver must drive you home. - NO public transportation without another adult if you receive anesthesia. - We recommend that an adult stay with you for 24 hours following discharge. - We also recommend that you do not drive, make important decision, drink alcoholic beverages, or take any drugs that were not prescribed by your health care provider for at least 24 hours after your discharge time. Follow any additional instructions given to you from your surgeon. If you or anyone in your household have experienced Covid symptoms in the past week, please notify your surgeon or the nurse liaison at the phone number below for possible testing. Telephone instructions given to __PATIENT and asked if any additional questions and then verbalized understanding. Patient advised to call surgeon office or pre surgery nurse liaison [phone] if any additional questions.
[2023-11-25 11:37] VITALS: BMI 31.1
[2023-12-07] VITALS (9 sets, daily range): BP systolic 117–159; BP diastolic 55–76; PULSE 67–93; RESP 14–20; TEMP 36.1–37; O2SAT 92–100
--- NOTE | 2023-12-07 08:37 | PM.SD2 ---
Same Day Admit/Disch: HPI History of Present Illness Chief complaint: Incarcerated Lt Ing Hernia Narrative: Loraine Barr is a 88 year old female who underwent colonoscopy on November 022023. This was essentially a negative colonoscopy with only a benign ascending colon polyp being removed. After she went home, she developed lower abdominal pain and was unable to pass flatus. Her pain worsened and she came to the emergency room. She was found to have an incarcerated left inguinal hernia containing small intestine. With the assistance of the Department of Anesthesia, this hernia was able to be reduced. She was observed overnight and had no further episodes of incarceration or discomfort. She has since recovered fully and is taken now to surgery for robotic laparoscopic repair of incarcerated left inguinal hernia with mesh. [facility] Past Medical History Medical History Anxiety Arthritis Depression Osteoarthritis of left knee Osteoporosis Panic attack Surgical History Surgical History History of colonoscopy (05/2018) Family History Family History Mother Cerebrovascular accident Hypertension Social History Social History Smoking status: Never smoker Additional smoking assessment comments: DENIES ANY FORM OF TOBACCO USE Alcohol intake: never Substance use: never Substance use type: does not use Do You Feel Safe in your Home?: Yes Lack of Transportation: No Lack of Food: Never True Current Housing: I Have Housing Concerned About Future Housing: No Difficulty Paying Gas/Electric Bills: No Difficulty Paying for Meds: No Currently Unemployed: No Education: High School Diploma/GED Difficulty w/ Childcare or Family Care: No Living arrangements: alone 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 Gender identity (if verbalized by the patient): Female Spiritual care concerns: No Same Day Admit/Disch: Med Pre-admit Medications Home Medications Medication Instructions Recorded Confirmed Type acetaminophen 500 mg tablet 500 mg PO Q6H PRN Pain 07/24/21 11/25/23 History calcium carbonate 600 mg-vitamin 1 cap PO DAILY 07/24/21 11/25/23 History D3 10 mcg (400 unit) capsule obewljyn-bzk-gbdww ac 400 1 tablet PO DAILY 07/24/21 11/25/23 History mcg-calcium carb 500 mg-vit K1 20 mcg tablet trazodone 50 mg tablet 50 mg PO QHS #90 tabs 12/02/22 11/25/23 Rx diclofenac sodium 75 mg 75 mg PO BID #180 tabs 06/22/23 11/25/23 Rx tablet,delayed release fluoxetine 40 mg capsule 40 mg PO DAILY #90 caps 08/04/23 11/25/23 Rx fluticasone propionate 50 See Rx Instructions .Route 09/13/23 11/25/23 Rx mcg/actuation nasal .COMPLEX #48 grams spray,suspension tramadol 50 mg tablet 50 - 100 mg PO Q6H PRN pain #20 12/07/23 Rx tabs Review of Systems Review of Systems All systems reviewed & are unremarkable except as noted in HPI and below (HPI) Exam Const: General: comfortable, no acute distress, alert and awake HENMT: Head: normocephalic and atraumatic Mouth: Yes Normal oral and palatal mucosa present Eyes: Conjunctivae: conjunctivae normal Pupils: Equal, round and reactive pupils present EOM: EOMs intact bilaterally Neck: Neck: normal visual inspection, no lymphadenopathy and nontender Resp: Effort & Inspection: normal respiratory effort Auscultation: clear to auscultation bilaterally Cardio: Rate: regular rate Rhythm: regular rhythm Heart sounds: no gallops, no murmurs and no rubs GI: Inspection: non-distended, scaphoid, no scars and visible herniation (Left inguinal) GI Palp: Yes Soft to palpation, No Tenderness to palpation present (GI), No Guarding due to palpation present (GI), No Hepatomegaly present, No Splenomegal
[2023-12-07] MEDS: LACTATED RINGERS 1,000 ML 30 ML IV CONT ×2 (08:45→11:23)
[2023-12-07] MEDS: KETOROLAC 15 MG/ML VIAL (*BKC) IV PUSH (08:49)
[2023-12-07] MEDS: ACETAMINOPHEN 500 MG TABLET 1000 MG PO (08:49)
--- NOTE | 2023-12-07 08:49 | WPDANESEPPF ---
Anes - Initial Pre Proc Eval Procedure: Operation Date: 12/07/23 09:30 Proposed Procedures p Robotic Incarcerated Left Inguinal Hernia Repair with Mesh - Toni Sanabria MD Date/Time: 12/07/23 08:49 Surgeon: Toni Sanabria MD Pre Op Diagnosis: Incarcerated Lt Ing Hernia Patient Data Age: 88 Gender: F Height: 1.55 m Weight: 74.3 kg Last Vital Signs Temp 37.0 C 12/07/23 08:00 Pulse 67 12/07/23 08:00 Resp 16 12/07/23 08:00 BP 150/76 H 12/07/23 08:00 Pulse Ox 100 12/07/23 08:00 O2 Del Method Room Air 12/07/23 08:00 Allergies Allergy/AdvReac Type Severity Reaction Status Date / Time Sulfa (Sulfonamide Allergy Mild Rash Verified 12/07/23 08:42 Antibiotics) sulfamethoxazole Allergy Mild Rash Verified 12/07/23 08:42 clindamycin Allergy Unknown Unknown Verified 12/07/23 08:42 codeine Allergy Unknown N/V Verified 12/07/23 08:42 nitrofurantoin Allergy Unknown Unknown Verified 12/07/23 08:42 nystatin Allergy Unknown Unknown Verified 12/07/23 08:42 Penicillins Allergy Unknown SEE TEXT Verified 12/07/23 08:42 Home Medications Medication Instructions Recorded Confirmed Type acetaminophen 500 mg tablet 500 mg PO Q6H PRN Pain 07/24/21 11/25/23 History calcium carbonate 600 mg-vitamin 1 cap PO DAILY 07/24/21 11/25/23 History D3 10 mcg (400 unit) capsule gbxewkga-csj-ykzxn ac 400 1 tablet PO DAILY 07/24/21 11/25/23 History mcg-calcium carb 500 mg-vit K1 20 mcg tablet trazodone 50 mg tablet 50 mg PO QHS #90 tabs 12/02/22 11/25/23 Rx diclofenac sodium 75 mg 75 mg PO BID #180 tabs 06/22/23 11/25/23 Rx tablet,delayed release fluoxetine 40 mg capsule 40 mg PO DAILY #90 caps 08/04/23 11/25/23 Rx fluticasone propionate 50 See Rx Instructions .Route 09/13/23 11/25/23 Rx mcg/actuation nasal .COMPLEX #48 grams spray,suspension Patient hx anesthesia problems: none Family hx anesthesia problems: none Results Review: All pre-operative results and documents have been reviewed as part of the pre-operative evaluation. [facility] Past Medical History Medical History Anxiety Arthritis Depression Osteoarthritis of left knee Osteoporosis Panic attack Surgical History Surgical History History of colonoscopy (05/2018) Family History Family History Mother Cerebrovascular accident Hypertension Social History Social History Smoking status: Never smoker Additional smoking assessment comments: DENIES ANY FORM OF TOBACCO USE Alcohol intake: never Substance use: never Substance use type: does not use Do You Feel Safe in your Home?: Yes Lack of Transportation: No Lack of Food: Never True Current Housing: I Have Housing Concerned About Future Housing: No Difficulty Paying Gas/Electric Bills: No Difficulty Paying for Meds: No Currently Unemployed: No Education: High School Diploma/GED Difficulty w/ Childcare or Family Care: No Living arrangements: alone 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 Informed Consent: The patient's anesthetic plan and its attendant risks and benefits were discussed with the patient/famil
--- NOTE | 2023-12-07 08:57 | WPDHPUPDATE1 ---
History and Physical Update Update Date/Time: 12/07/23 08:57 History and Physical has been reviewed, including an updated exam of the patient. There are NO changes in the patient's condition. Risks, benefits, and alternatives have been discussed and questions answered. Patient agrees to proceed with procedure.
[2023-12-07] MEDS: ceFAZolin 2 GM/D5W 50 ML 2 GM/50 ML BAG IVPB (09:27)
[2023-12-07] MEDS: BUPIVACAINE/EPINEPHRINE 0.5% 50 ML VIAL 30 ML INFILTRATE (11:05)
--- NOTE | 2023-12-07 11:54 | W.PM.PROC2 ---
Procedure Note - Detailed Date of Procedure 12/07/23 Pre-op Diagnosis Incarcerated Lt Ing Hernia Post-op Diagnosis Same Procedure Performed Robotic laparoscopic repair incarcerated left inguinal hernia with mesh Surgeon Toni Sanabria MD Dock Operator Kavita FOWLER Anesthesia General and Local Indications Patient presented in early January with an incarcerated left inguinal hernia and small-bowel obstruction due to intestinal incarceration. This was able to be reduced with the assistance of sedation. Patient continues to have incarcerated hernia but no bowel involvement. She is taken to surgery now for robotic laparoscopic repair Findings Patient had a direct inguinal hernia, defect was fairly small. There was a lot of incarcerated properitoneal fat in the hernia defect. Description of Procedure Patient was taken to surgery and induced into general anesthesia. The abdomen is prepped and draped. Trocars were placed in usual fashion 1st using a 5 mm applied Medical optical trocar and then placing the robotic trocars under direct visualization. The mesh and suture were also placed once the trocars were position. Ileoinguinal nerve block was used as well. The robot was then brought into the field and the camera was docked and targeted. The operating arms were then positioned appropriately. The surgeon went to the robotic console. A peritoneal flap was created from lateral to medial over the inguinal canal structures. The flap was developed broadly. The dissection continued across the midline exposing the medial aspect of the right rectus muscle. The pubis and Cyril's ligament were likewise exposed. Laterally, dissection was carried posteriorly an adequate amount. We then turned our attention to the incarcerated direct hernia. Applying gentle traction, some cautery was used to divide the anterior attachments. Gradually I was able to continue this process and completely removed the incarcerated fat from the hernia defect. I then continued the dissection exposing Cyril's ligament and dissecting posterior to that 1-2 cm. We then dissected in the area of the internal ring. The round ligament was found but no real hernia. We dissected the round ligament and divided it near the internal ring. Care was taken to avoid injury to the internal ring vessels as well as the iliac vessels. There was some properitoneal fat anterior to the internal ring and this was dissected out and removed. It was quite a large bit of fat and some of it was in the indirect space. Cautery was used for hemostasis as was bipolar. The area appeared to be adequately dissected for mesh placement. A 16 x 10 cm 3DMax mesh was then positioned appropriately in the inguinal canal. The mesh was sutured to Cyril's ligament as well as to the anterior abdominal wall with a suture on the medial aspect of the inferior epigastric vessels and another suture lateral to the inferior epigastric vessels. The suture used for all of this was 3-0 Vicryl. The mesh was again checked and was in very good position. The peritoneum had been dissected adequately posteriorly so that it would not creep under the posterior edge of the mesh. The peritoneal flap was then closed with running 3 0 V lock suture. All looked good. We removed the instruments and evacuated CO2. The robot was undocked and the trocars were removed. Skin wounds were closed with subcuticular 4-0 Monocryl skin suture. The wounds were dressed with Exofin surgical adhesive. The patient was awakened and taken to recovery in good condition. Sponge and needle counts were correct x2. Implants 16 x 10 cm mid left 3DMax mesh Estimated Blood Loss -5 Drains No Packing No Pathology None sent Complications No immediate complications Condition Stable Disposition PACU [facility] Billing Surgery - Charge Forward: Surgery Billing (Robotic laparoscopic repair incarcerated left inguinal hernia with mesh)
[2023-12-07] MEDS: ONDANSETRON INJ 4 MG/2 ML VIAL IV PUSH (12:27)
== END 2023-12-07 14:05 | disposition home or self-care (01) ==
PROVIDERS: PCP Family Medicine Adolescent Medicine; Visit Provider Surgery
PROC: 8E0Y4CZ Robotic Assisted Procedure of Lower Extremity, Percutaneous Endoscopic Approach (ICD-10-PCS; CPT 49650; principal; 2023-12-07 09:30)
DX: K40.30 Unilateral inguinal hernia, with obstruction, without gangrene, not specified as recurrent (principal); F41.9 Anxiety disorder, unspecified; F32.A Depression, unspecified; M81.0 Age-related osteoporosis without current pathological fracture; E66.9 Obesity, unspecified; Z68.31 Body mass index [BMI] 31.0-31.9, adult
CPT/HCPCS: 49650; S2900; 36415; 71046; 80048; 85025; 86850; 86900; 86901; 93005; A9270; C1781; J0690; J1100; J1170; J1885; J2405; J2704; J3010; J7030; J7120

== ENCOUNTER 2024-01-07 07:06 | Emergency (ER) | payer MEDICARE, SELFPAY ==
--- NOTE | ~2024-01-07 | US_ITS ---
EXAMINATION: US abdomen limited DATE: 01/07/2024 10:16 INDICATION: Right upper quadrant abdominal pain. TECHNIQUE: Multiple grayscale and Doppler ultrasound images of the abdomen were obtained. COMPARISON: CT abdomen pelvis 01/07/2024 FINDINGS: The visualized portions of the head and body of the pancreas are normal. There is a 2.5 cm hyperechoic mass in the liver. There are gallstones in the gallbladder, which is normal in size. The CT demonstrates prominent normal fat between the gallbladder and liver. No gallbladder wall thickenin g or sonographic Rees sign. The common duct is normal and measures 5 mm. IMPRESSION: 1. 2.5 cm hyperechoic liver mass. In the absence of known malignancy or chronic liver disease, this f inding is likely a hemangioma. 2. Cholelithiasis. Reviewed, dictated and finalized at location A. IMPRESSION: 1. 2.5 cm hyperechoic liver mass. In the absence of known malignancy or chronic liver disease, this finding is likely a hemangioma. 2. Cholelithiasis.
--- NOTE | ~2024-01-07 | CT_ITS ---
EXAMINATION: CT abdomen pelvis w con DATE: 01/07/2024 07:59 INDICATION: Abdominal pain. TECHNIQUE: Computed tomography (CT) of the abdomen and pelvis was performed with 100 mL Omnipaque 350 intravenous contrast. Automated exposure control and iterative reconstruction technique were employe d. The dose-length product was 682.36 mGy-cm. COMPARISON: CT abdomen and pelvis 11/04/2023 FINDINGS: The visualized portions of the lung bases demonstrate mild atelectasis and mild chronic cortez g disease. There are bilateral posterior diaphragmatic hernias containing fat. No pleural effusion. C ardiomegaly is noted. No pericardial effusion. There is a small sliding hiatal hernia. The liver is n ormal. There are gallstones in the gallbladder, which is normal in size. The spleen, pancreas, adrena l glands, and kidneys are normal. There is diverticulosis of the colon without evidence of diverticul itis. The visualized portion the appendix is normal. There are no pathologically enlarged lymph nodes . There is trace ascites. There is edema of the intra-abdominal fat. There is a right inguinal hernia containing fat. There are changes of left inguinal hernia repair. There is severe thoracic and lumba r spondylosis. IMPRESSION: 1. Small sliding hiatal hernia. 2. Right inguinal hernia containing fat. 4. Cholelithiasis. Reviewed, dictated and finalized at location A.
[2024-01-07 07:03] VITALS: BP 164/88; PULSE 85; RESP 12; TEMP 37.1; O2SAT 97
[2024-01-07 07:28] LABS: Basophils Percent Auto 0.1 % (0.2-1.2); Eosinophils Percent Auto 0.4 % (0-4.4); Hematocrit 40.8 % (37.0-47.0); Hemoglobin 13.2 g/dL (12.0-15.0); Immature Granulocyte Absolute 0.02 K/mm3 (0.00-0.031); Immature Granulocyte Percent A 0.2 % (0-0.5); Lymphocytes Absolute Auto 1.89 K/mm3 (0.9-3.2); Mean Corpuscular HGB Conc 32.4 g/dl (32-36); Mean Corpuscular Hemoglobin 29.3 pg (26-34); Mean Corpuscular Volume 90.5 fl (80-100); Mean Platelet Volume 9.5 fl (7.4-10.4); Monocytes Absolute Auto 0.4 K/mm3 (0.1-0.6); Neutrophils Absolute Auto 7.1 K/mm3 (1.3-6.7); Neutrophils Percent Auto 75.3 % (45.5-73.1); Platelet Count Result 267 k/mm3 (150-375); Red Blood Count 4.51 M/mm3 (4.2-5.4); Red Cell Distribution Width 14.1 % (11.5-14.5); White Blood Count 9.5 K/mm3 (4.5-10.0)
[2024-01-07] MEDS: SODIUM CHLORIDE 0.9% IV 1,000 ML 999 ML IV CONT (07:28)
--- NOTE | 2024-01-07 07:28 | PC.NURSE ---
Pt states she wants to wait on pain medication at this time
[2024-01-07 07:44] LABS: Alanine Aminotransferase 21 U/L (6-35); Albumin Level 4.7 g/dL (3.5-5.1); Alkaline Phosphatase 88 U/L (38-126); Anion Gap 8 mmol/L (4-12); Aspartate Amino Transferase 32 U/L (14-36); Bilirubin,Total 0.5 mg/dL (0.2-1.3); Blood Urea Nitrogen 35 mg/dL (7-17); Calcium 9.1 mg/dL (8.4-10.2); Carbon Dioxide 22 mmol/L (22-30); Chloride 109 mmol/L (98-107); Estimated CRCL calculation 37 ml/min; Estimated Glomerular Filt Rate 59; Glucose 108 mg/dL (65-110); Lactic Acid Reflex 0.8 mmol/L (0.7-2.0); Lipase 98 U/L (23-300); Potassium 4.4 mmol/L (3.4-5.0); Sodium 139 mmol/L (137-145)
--- NOTE | 2024-01-07 08:01 | ED.GENADULT ---
HPI - General Adult General Chief complaint: Abdominal Pain Stated complaint: abd pain Time Seen by Provider: 01/07/24 07:11 History of Present Illness HPI narrative: Patient is a 8-year-old female who presents emergency department with chief complaint of abdominal pain. Patient reports that she had a recent hernia her surgery by Dr. Sanabria and reports that she started having abdominal pain this morning in her lower quadrants of her abdomen patient states the pain is sharp reports that is not improved by anything a does report that it is worsened when she moves. Patient denies vomiting denies diarrhea reports she had a normal bowel movement yesterday the patient denies urinary symptoms Related Data Home Medications Medication Instructions Recorded Confirmed acetaminophen 500 mg tablet 500 mg PO Q6H PRN Pain 07/24/21 12/20/23 calcium carbonate 600 mg-vitamin 1 cap PO DAILY 07/24/21 12/20/23 D3 10 mcg (400 unit) capsule gglvgmjj-dwh-yaitw ac 400 1 tablet PO DAILY 07/24/21 12/20/23 mcg-calcium carb 500 mg-vit K1 20 mcg tablet Allergies Allergy/AdvReac Type Severity Reaction Status Date / Time Sulfa (Sulfonamide Allergy Mild Rash Verified 01/07/24 07:14 Antibiotics) sulfamethoxazole Allergy Mild Rash Verified 01/07/24 07:14 clindamycin Allergy Unknown Unknown Verified 01/07/24 07:14 codeine Allergy Unknown N/V Verified 01/07/24 07:14 nitrofurantoin Allergy Unknown Unknown Verified 01/07/24 07:14 nystatin Allergy Unknown Unknown Verified 01/07/24 07:14 Penicillins Allergy Unknown SEE TEXT Verified 01/07/24 07:14 trimethoprim [From Bactrim] Allergy Unknown Verified 01/07/24 07:14 Review of Systems Review of Systems: A 10 system review of systems was completed on the patient and is negative except for what is stated in the HPI. Nursing and ancillary documentation was reviewed. [facility] Past Medical History Medical History Anxiety Arthritis Depression Osteoarthritis of left knee Osteoporosis Panic attack Surgical History Surgical History History of colonoscopy (05/2018) History of inguinal hernia repair (12/2023) robo incarcerated LIH repair w/ mesh on 12/07/23 Family History Family History Mother Cerebrovascular accident Hypertension Social History Social History Smoking status: Never smoker Additional smoking assessment comments: DENIES ANY FORM OF TOBACCO USE Alcohol intake: never Substance use: never Substance use type: does not use Do You Feel Safe in your Home?: Yes Lack of Transportation: No Lack of Food: Never True Current Housing: I Have Housing Concerned About Future Housing: No Difficulty Paying Gas/Electric Bills: No Difficulty Paying for Meds: No Currently Unemployed: No Education: High School Diploma/GED Difficulty w/ Childcare or Family Care: No Living arrangements: alone 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 HEAD: Normocephalic, atraumatic. EYES: PERRLA and EOMI. ENT: Nares clear, no rhinorrhea or epistaxis. Mucous membranes moist. NECK: Supple. CHEST: Clear to auscultation. No respiratory distress. HEART: Regular rate and rhythm. No murmur heard. Normal peripheral pulses. ABDOMEN: Soft, diffusely tender in the lower quadrants of the abdomen, nondistended, normal active bowel sounds. EXTREMITIES: Normal range of motion. No edema. SKIN: Warm, dry, no rash. NEURO: No focal deficits. Alert and oriented x3. PSYCH: Normal mood and affect. Course Vital Signs Vital signs:
[2024-01-07 08:15] VITALS: BP 179/75; PULSE 94; RESP 19; O2SAT 97
[2024-01-07 08:31] VITALS: BP 175/68; PULSE 93; RESP 19; O2SAT 97
[2024-01-07 08:32] LABS: Appearance Urine Clear (Clear); Bacteria Urine None Seen /hpf; Bilirubin Urine Negative (Negative); Blood Urine Negative (Negative); Color Urine Yellow (Yellow); Glucose Urine UA Negative (Negative); Ketones Urine Negative (Negative); Leukocyte Esterase Ur 2+ LEU/UL (Negative); Need Manual Microscopic Reviewed; Nitrate Urine Negative (Negative); Non Pathogenic Casts 0-2; Protein Urine Negative (Negative); RBC Urine 0-2 /hpf (0-2); Specific Grav Ur 1.016 (1.001-1.035); Squamous Epithelial Cell Urine None Seen /hpf (Few); Urobilinogen Urine 0.2 mg/dL (<2.0)
[2024-01-07 08:33] LABS: Add Urine Microscopic? YES
[2024-01-07 09:01] VITALS: BP 142/86; PULSE 91; RESP 17; O2SAT 99
[2024-01-07] MEDS: DICYCLOMINE HCL INJ 20 MG/2 ML VIAL IM (10:02)
[2024-01-07 10:04] VITALS: BP 156/75; PULSE 96; RESP 17; O2SAT 98
[2024-01-07 11:33] VITALS: BP 140/59; RESP 16; O2SAT 99
== END 2024-01-07 11:34 | disposition home or self-care (01) ==
PROVIDERS: Emergency Provider Emergency Medicine; PCP Family Medicine Adolescent Medicine
DX: R10.32 Left lower quadrant pain (principal); R10.31 Right lower quadrant pain; Z98.890 Other specified postprocedural states; M17.12 Unilateral primary osteoarthritis, left knee; M81.0 Age-related osteoporosis without current pathological fracture; Z79.899 Other long term (current) drug therapy; R16.0 Hepatomegaly, not elsewhere classified; K80.20 Calculus of gallbladder without cholecystitis without obstruction; K44.9 Diaphragmatic hernia without obstruction or gangrene; K40.90 Unilateral inguinal hernia, without obstruction or gangrene, not specified as recurrent
CPT/HCPCS: 36415; 74177; 76705; 80053; 81001; 83605; 83690; 85025; 96360; 96372; 99284; J0500; J7030; Q9967

== ENCOUNTER 2024-11-16 07:47 | Outpatient (CLI) | payer MEDICARE, SELFPAY ==
--- OUTSIDE RECORDS SUMMARY | 2024-11-16 07:51 | XMS_ITS | Clinical Summary ---
Author Organization [facility] Address [address] [place] [address] Care Team Providers Care Online Content Editor Name Role Phone Unavailable Primary Care Provider Unavailabl e Social History Tobacco Use Types Packs/Day Years Used Date Smoking Tobacco: Never Assessed Comments Unknown Sex and Gender Information Value Date Recorded Sex Assigned at Not on file Legal Sex Female 7:11 PM CDT Gender Identity Not on file Sexual Orientation Not on file Plan of Treatment Health Maintenance Due Date Last Done Comments DTaP, Tdap and Td Vaccines ( 1 - Tdap) 1954 Pneumococcal Vaccine: 50+ Ye ars (1 of 1 - PCV) 11/24/1987 Zoster Vaccines (1 of 2) 11/24/1987 RSV Immunization or 60+ Years (1 - 1-dose 75+ series) 2012 COVID-19 Vaccine (2023-2 5 season) 2024 Meningococcal B Vaccine Aged Out No l onger eligible based on patient's age to complete this topic Meningococcal Vaccine Aged Out No ivana eugenio eligible based on patient's age to complete this topic RSV Immunizations Under 20 Months Aged Out No longer eligible based on patient's age to complete this topic
--- OUTSIDE RECORDS SUMMARY | 2024-11-16 07:51 | XMS_ITS | Data Portability ---
Author Organization [facility] [email or web address], Main Office Address [address] [place] [address] Care Team Providers Care Heel Lining Paster Name Role Phone EDI MELENDEZ Primary Care Provider EDI MELENDEZ Referring Provider [phone] Assessment Encounter Date Assessment Date Assessment LastModified by Organization Details LastModified Time 08/16/2023 08/16/2023 Impression: Patient has severe medial compartment osteoarthritis left knee. She does get good relief from the cortisone injections would like to continue with these. I explained her that I can give her cortisone shot his office every 3 months if necessary and helpful. She has decided that she would rather not go through the ordeal and risk of having knee replacement surgery since her symptoms are so well controlled with non operative measures. She tolerates the diclofenac very well and this has helped her greatly. She would like cortisone shot today. Risk of side effects including risk of infection discussed. After Betadine and alcohol prep, 20 mg of Kenalog and 4 cc of 0.5% ropivacaine were injected the left knee without difficulty and she tolerated this well. I can see her back is often as every 3 months for injection. 30 minutes were spent in total care this patient more than half the time spent in [id number] care. [email or web address] Not available 08/16/2023 16:23:10 Plan of Treatment Reminders Order Date Submit Date Provider Last Modified By Organization Details Last Modified Time Details Appointments None record ed. Lab None record ed. Referral None record ed. Procedures None record ed. Surgeries None record ed. Imaging None record ed. Medication Orders None record ed. Patient TargetsNo targets recorded. Patient InstructionsNo instructions recorded. Reason for Referral None Reported. Problems Name Problem SNOMED Code Status Onset Date Resolution Date Notes Provider Name and Address Organization Details Recorded Time Pain of left knee joint [id number] [facility] Problem Notes None recorded. Medical Equipment None Reported. Allergies Allergen ID Allergen Name Allergen Category Reaction Reaction Severity Criticality Documentation Date Start Date Code Code System Note Provider Name and Address Organization Details Recorded Time 68713 Product containin g penicilli n (product) medicatio n Not available Not available Not available 08/16/2023 43900 8001 SNOMED [facility] 15:49:15 76008 nystatin medicatio n Not available Not available Not available 08/16/2023 7597 RxNorm [facility] 15:49:28 22152 Macrobid medicatio n Not available Not available Not available 08/16/2023 62547 1 RxNorm [facility] 15:49:39 Medications Name Sig Start Date Stop Date Status Note LastModified by Organization Details LastModified Time fluoxetine 40 mg capsule active Not Available Not Available N ot Available buspirone 5 mg tablet active Not Available Not Available Not Available fosfomycin tromethamine 3 gram oral packet active Not Available Not Available Not Available fluoxetine active Not Available Not Av ailable Not Available trazodone active Not Available Not Mariama ilable Not Available Vitals Date Recorded Body height Body mass index (BMI) Body weight Provider Name and Address Organization Details Last Updated DateTime 08/16/2023 154.94 cm 32.1 kg/m2 67203.7 g RAHUL Mendoza [facility] 08/16/2023 15:56:49 Social History None recorded. Functional Status Question Answer Note LastModified by Organization D etails LastModified Time What is your level of alcohol consumption? None Information not available 08/16/2023 Mental Status None recorded. Family History Relationship Description Onset Age of this Age Resolved Age Notes LastModified by Organization Details LastModified Time Mother Family history of stroke [email or web address] Not available 2023 15:51:57 Mother Hypertensive disorder [email or web address] Not available 2023 15:52:07 Medical History Condition Response ARTHRITIS Y Gynecological HistoryNo gynecological history recorded. Obstetrics History GPAL:G 0 P 0 0 0 0 Past Encounters Encounter ID Performer Location Encounter Start Date Encounter Closed Date Diagnosis/Indication Diagnosis SNOMED-CT Code Diagnosis ICD10 Code Diagnosis Note [id number] Richard Caraballo MD [facility] [address] [place] [address] 08/16/2023 15:20:51 08/16/2023 16:25:01 Pain of left knee joint [id number] 12930 M25.562 Health Concerns Section Related Observation LastModified by Organization Detai ls LastModified Time None Recorded Concern Status LastModified by Organization Details LastModified Time None Recorded Advance Directives Directive None Recorded Payers Encounter Date Sequence Insurance Name Policy Number Policy Torres Covered Member ID Torres Member ID Guarantor Name 08/16/2023 1 [employer] (MEDICARE REPLACEMENT/ ADVANTAGE - PPO) [id number] Loraine Barr [id number] Loraine Barr Notes Date Note Type Note Provider Name and Address Organization Details Recorded Time 08/16/2023 text/html Patient is a an 87-year-old female patient of Dr. Jacobs who presents requesting cortisone shot her left knee. She has had osteoarthritis in her knees the left knee being the worst for many years. She takes diclofenac twice daily. She is unsure whether it is the 50s over the 75 but she relies heavily on the diclofenac to control her neck shoulder hip and knee osteoarthritis symptoms. While taking the diclofenac she does not have significant pain. 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 She normally uses a cane but does use a walker in library if she is on her feet 3-1/2 hours straight. She was actually scheduled for knee replacement last July with Dr. Rouse but after further discussion she reported that she is not really having pain so the surgery was canceled. She has been getting cortisone shots every 4 months for a long time her last 1 was April 21. X-rays from Dr. Prince office dated 08/26/2022 are reviewed and demonstrate severe osteoarthritis medial compartment left knee moderately severe osteoarthritis medial compartment right knee. Richard Caraballo MD [address], [place] [address], [place], [address], [facility] [employer] [facility] 08/16/2023 16:23:32 OBGyn Episode No OBEpisode recorded.
--- OUTSIDE RECORDS SUMMARY | 2024-11-16 07:51 | XMS_ITS | Clinical Summary ---
Author Organization [employer] [facility] Address [address] Attn: Epic Prelude ADT MANDO SIMMONS [address] Care Team Providers Care Clinical Cytogeneticist Scientist Name Role Phone Unavailable Primary Care Provider Unavailabl e Medications fosfomycin tromethamine (MONUROL) 3 gram Packet TAKE 3 GRAMS DIRECTED ON PACKAGE ONE DOSE. 1 Packet 1 4 3:25 PM STRUCTURAL WORKER 08/12/19 24 Active sodium, potassium and magnesium sulfates (SUPREP) 17.5-3.13-1.6 gram Recon Soln Take as directed per Dr. Lyon's written instructions that were mailed to you. 354 mL 4 9:52 AM CDT 10/27/19 24 Active traMADoL (ULTRAM) 50 mg tablet Take 1-2 tablets by mouth every 6 hours as needed for pain 20 Tablet 12/07/19 24 Active hyoscyamine 0.125 mg sublingual tablet Dissolve 2 tablets by mouth four times daily as needed for abdominal pain 10 Tablet 4 12:26 PM CDT 01/11/20 24 Active diclofenac sodium (VOLTAREN) 75 mg Tablet, Delayed Release (E.C.) Take 1 Tablet (75 mg) by mouth 2 times daily. 180 Tablet 1 11/08/19 25 2024 Discontinued FLUoxetine (PROzac) 40 mg capsule Take 1 Capsule (40 mg) by mouth daily. 90 Capsule 1 11/08/19 25 2024 Discontinued fluticasone propionate (FLONASE) 50 mcg/spray [place], Suspension nasal inhaler USE 2 SPRAYS IN EACH NOSTRIL DAILY 48 Gram 3 11/08/19 25 2024 Discontinued traZODone (DESYREL) 50 mg tablet Take 1 Tablet (50 mg) by mouth daily at bedtime. 90 Tablet 3 11/08/19 25 2024 Discontinued Immunizations Immunization Administration Dates Next Due (COMIRNATY)(12 YR UP) COVID- 19 VACCINE, MRNA, SPIKE PROTEIN, LNP, MIGUEL(PF) 30 MCG/0.3 ML IM SUSP 04/06/2024 INFLUENZA VACCINE QUADRIVALENT 6 MOS UP PF IM INFLUENZA VACCINE TRIVALENT SPLIT VIRUS, (6 MOS UP), 0.5ML (PF), IM 04/06/2024 Social History Tobacco Use Types Packs/Day Years Used Date Smoking Tobacco: Never Assessed Comments Unknown Sex and Gender Information Value Date Recorded Sex Assigned at Not on file Legal Sex Female 3:27 PM CDT Gender Identity Not on file Sexual Orientation Not on file Plan of Treatment Health Maintenance Due Date Last Done Comments DTAP/TDAP/TD VACCINES (1 - Tdap) 1954 PNEUMOCOCCAL VACCINE 50+ YEA RS (1 of 1 - PCV) 11/24/1987 ZOSTER VACCINE (1 of 2) 11/24/1987 OSTEOPOROSIS SCREENING 2002 RSV VACCINE (60+ or ) (1 - 1-dose 75+ series) 2012 COVID-19 Vaccine (2 - season) 10/05/202409/2023 INFLUENZA VACCINE Completed 04/06/2024, 04/01/2023 Insurance RX AET[employer] Medicare Part D RX A[employer] Medicare Part D
== END 2024-11-16 07:48 | disposition home or self-care (01) ==
LOC: ANHAUDASC 07:48
PROVIDERS: PCP Family Medicine Adolescent Medicine; Visit Provider Family Medicine Adolescent Medicine
DX: H91.90 Unspecified hearing loss, unspecified ear (principal)
CPT/HCPCS: 92557; 92567

== ENCOUNTER 2025-03-02 14:30 | Outpatient (RCR) | payer MEDICARE, SELFPAY | END 2025-04-11 23:59 | disposition home or self-care (01) | LOC: ANHAUDASC 14:30 | PROVIDERS: PCP Family Medicine Adolescent Medicine; Visit Provider Family Medicine Adolescent Medicine | DX: Z46.1 Encounter for fitting and adjustment of hearing aid (principal) | CPT/HCPCS: 99199; V5261 ==

== ENCOUNTER 2025-05-28 13:31 | Outpatient (CLI) | payer MEDICARE, SELFPAY ==
--- NOTE | 2025-05-28 | ECHO_ITS ---
Patient Info Name: Loraine Barr Age: 89 years : 1935 Gender: Female Ht: 61 in Wt: 169 lbs BSA: 1.85 m2 HR: 90 bpm BP: 173 / 90 mmHg Heart Rhythm: Sinus Rhythm Technical Quality: Good Exam Date: 05/28/2025 2:16 PM Patient Status: O Admit Date: 05/28/2025 Exam Type: CA echo doppler color flow Complete two-dimensional, color flow and Doppler transthoracic echocardiogram is performed. Senior Network Security Architect: Bobbi Esparza Attending Provider: [place] Summary 1. Complete two-dimensional, color flow and Doppler transthoracic echocardiogram is performed. 2. Left ventricular chamber dimension is normal. 3. Left ventricular systolic function is normal, estimated at 65-70. 4. There is mild concentric increased left ventricular wall thickness. 5. The left ventricular diastolic function is grade I diastolic dysfunction. 6. E/e' 24 is significantly elevated. 7. Left atrial chamber dimension is moderately enlarged. 8. There is mild aortic valve sclerosis. 9. There is trace aortic valve regurgitation. 10. The mitral valve has a mildly calcified annulus. 11. No pulmonary hypertension, estimated pulmonary arterial systolic pressure is 29 mmHg. Left Ventricle E/e' 24 is significantly elevated. Left ventricular chamber dimension is normal. Left ventricular systolic function is normal, estimated at 65-70. There is mild concentric increased left ventricular wall thickness. The left ventricular diastolic function is grade I diastolic dysfunction. Right Ventricle Right ventricular chamber dimension is normal. Right ventricular systolic function is normal and with normal TAPSE 2.2 cm. Left Atria Left atrial chamber dimension is moderately enlarged. Right Atria Right atrial chamber dimension is normal. Aortic Valve The aortic valve is trileaflet. There is mild aortic valve sclerosis. There is no aortic valve stenosis. There is trace aortic valve regurgitation. Pulmonic Valve There is no pulmonic regurgitation. Mitral Valve The mitral valve has a mildly calcified annulus. There is no mitral valve stenosis. There is no mitral valve regurgitation. Tricuspid Valve There is no tricuspid valve regurgitation. No pulmonary hypertension, estimated pulmonary arterial systolic pressure is 29 mmHg. Pericardium/Pleural There is no pericardial effusion. Inferior Vena Cava Normal inferior vena cava with >50% collapse upon inspiration consistent with normal right atrial pressure, 5 mmHg. Aorta The aortic root size at the sinus of Valsalva is normal. Left Ventricular Outflow Tract Name Value Normal LVOT 2D LVOT Diameter 2.0 cm LVOT Doppler LVOT Peak Velocity 161 cm/s LVOT Peak Gradient 10 mmHg LVOT Mean Gradient 7 mmHg LVOT VTI 34 cm LVOT VTI/AV VTI Ratio 0.6 LVOT Stroke Volume 106 ml LVOT CO 8.3 l/min LVOT CI 4.5 l/min/m2 Pulmonic Valve Name Value Normal RVOT Doppler RVOT Peak Velocity 98 cm/s RVOT Peak Gradient 4 mmHg PV Doppler PV Peak Velocity 110 cm/s PV Peak Gradient 5 mmHg Mitral Valve Name Value Normal MV Diastolic Function MV E Peak Velocity 84 cm/s MV A Peak Velocity 120 cm/s MV E/A 0.7 MV Decel Time (PW) 241 ms MV Annular TDI MV E/e' (Septal) 28.3 MV E/e' (Lateral) 22.3 MV E/e' (Average) 25.3 Tricuspid Valve Name Value Normal TV Regurgitation Doppler TR Peak Velocity 245 cm/s TR Peak Gradient 24 mmHg Estimated PAP/RSVP RA Pressure 5 mmHg <=5 PA Systolic Pressure 29 mmHg <36 RV Systolic Pressure 29 mmHg <36 TV Annular TDI TV Lateral Fay s' Velocity 12.7 cm/s >=9.5 Aorta Name Value Normal Ascending Aorta Ao Root Diameter (MM) 2.9 cm Ao Root Diam Index (MM) 1.5 cm/m2 Aortic Valve Name Value Normal AV Doppler AV Peak Velocity 310 cm/s AV Peak Gradient 38 mmHg AV Mean Gradient 19 mmHg AV VTI 57 cm AV Area (Cont Eq VTI) 1.9 cm2 >=3.0 AV Area (Cont Eq Royce) 1.6 cm2 AV DI (Royce) 0.52 AV Regurgitation 2D LVOT Area 3.1 cm2 Ventricles Name Value Normal LV Dimensions 2D/MM IVS Diastolic Thickness (2D) 0.8 cm 0.6-1.0 LVID Diastole (2D) 4.8 cm 3.8-5.2 LVIW Diastolic Thickness (2D) 0.8 cm 0.6-0.9 LVID Systole (2D) 3.3 cm 2.2-3.5 LVOT Diameter 2.0 cm LV Mass (2D Cubed) 135.14 g 67.00-162.00 LV Mass Index (2D Cubed) 73 g/m2 43-95 Relative Wall Thickness (2D) 0.35 <=0.42 LV Fractional Shortening/Ejection Fraction 2D/MM LV Fractional Shortening (2D) 32 % 27-45 LV EF (2D Teichholz) 60 % LV Diastolic Volume (4C MOD) 37 ml LV EF (4C MOD) 63 % LV Diastolic Volume (2C MOD) 43 ml LV EF (2C MOD) 61 % LV Diastolic Volume (BP MOD) 40 ml 46-106 LV Diastolic Volume Index (BP MOD) 22 ml/m2 29-61 LV Systolic Volume (BP MOD) 16 ml 14-42 LV Systolic Volume Index (BP MOD) 9 ml/m2 8-24 LV EF (BP MOD) 59 % 54-74 LV Diastolic Length (4C) 7.5 cm LV Systolic Length (4C) 6.3 cm LV Stroke Volume (4C MOD) 23 ml Atria Name Value Normal LA Dimensions LA Dimension (MM) 5.0 cm 2.7-3.8 LA Volume (4C A-L) 96 ml LA Volume (BP A-L) 83 ml RA Dimensions RA Area (4C) 11.0 cm2 <=18.0 Report Signatures
--- OUTSIDE RECORDS SUMMARY | 2025-05-28 15:58 | XMS_ITS | Data Portability ---
Author Organization [place] [employer] [facility], Main Office Address [address] [place] [address] Care Team Providers Care Winter Sports Manager Name Role Phone EDI MELENDEZ Primary Care Provider EDI MELENDEZ Referring Provider Assessment Encounter Date Assessment Date Assessment LastModified [...] more than half the time spent in [id number] care. [email or web address] Not available 08/16/2023 16:23:10 Plan [...] Recorded Time Pain of left knee joint 067071080655321 Active 2023 [facility] Problem Notes None recorded. Medical Equipment None Reported. Allergies Allergen ID Allergen Name Allergen Category Reaction Reaction Severity Criticality Documentation Date Start Date Code Code System Note Provider Name and Address Organization Details Recorded Time 14576 Product containin g penicilli n (product) medicatio n Not available Not available Not available 08/16/2023 92976 8001 SNOMED [facility] 15:49:15 09306 nystatin medicatio n Not available Not available Not available 08/16/2023 7597 RxNorm RAHUL Mendoza [facility] 15:49:28 60636 Macrobid medicatio n Not available Not available Not available 08/16/2023 28554 1 RxNorm [facility] 15:49:39 Medications Name Sig Start Date Stop [...] Updated DateTime 08/16/2023 154.94 cm 32.1 kg/m2 08186.7 RAHUL Yost [facility] 08/16/2023 15:56:49 Social History None recorded. Functional Status Question Answer Note LastModified by Organization D etails LastModified Time What is your level of alcohol consumption? None [email or web address] Information not available 08/16/2023 Mental Status None recorded. Family History Relationship Description Onset Age of this Age Resolved Age Notes LastModified by Organization Details LastModified Time Mother Family history of stroke [email or web address] Not available 2023 15:51:57 Mother Hypertensive disorder [email or web address] Not available 2023 15:52:07 Medical History Condition Response ARTHRITIS Y Gynecological HistoryNo gynecological history recorded. Obstetrics History GPAL:G 0 P 0 0 0 0 Past Encounters Encounter ID Performer Location Encounter Start Date Encounter Closed Date Diagnosis/Indication Diagnosis SNOMED-CT Code Diagnosis ICD10 Code Diagnosis IMO Codes Diagnosis Note [id number] Richard Caraballo MD [facility] [address] [place] [address] 08/16/2023 15:20:51 08/16/2023 16:25:01 Pain of left knee joint [id number] 23042 M25.562 Health Concerns Section Related Observation LastModified by Organization Detai ls LastModified Time None Recorded Concern Status LastModified by Organization Details LastModified Time None Recorded Advance Directives Directive None Recorded Payers Insurance Date Sequence Insurance Name Policy Number Policy Torres Covered Member ID Torres Member ID Guarantor Name 08/26/2023 1 [employer] (MEDICARE REPLACEMENT/ ADVANTAGE - PPO) [id number] Loraine Barr [id number] Loraine Barr Notes Date Note Type Note [...] medial compartment right knee. Richard Caraballo MD [address] [place] [address], [place] [address], [place], [address], [facility] [employer] [facility] 08/16/2023 16:23:32 OBGyn Episode No OBEpisode recorded.
--- OUTSIDE RECORDS SUMMARY | 2025-05-28 15:58 | XMS_ITS | Clinical Summary ---
Author Organization [employer] [facility] Address [address] [facility] Attn: Epic Prelude ADT [place] [address] Care Team Providers Care Sweeping Compound Blender Name Role Phone Unavailable Primary Care Provider Unavailabl e Medications fosfomycin tromethamine (MONUROL) 3 gram Packet TAKE 3 GRAMS DIRECTED ON PACKAGE ONE DOSE. 1 Packet 1 08/13/2023 3:25 PM CHROME TANNING DRUM OPERATOR 4 Active sodium, potassium and magnesium sulfates (SUPREP) 17.5-3.13-1.6 gram Recon Soln Take as directed per Dr. Lyon's written instructions that were mailed to you. 354 mL 10/28/2023 9:52 AM CDT 4 Active traMADoL (ULTRAM) 50 mg tablet Take 1-2 tablets by mouth every 6 hours as needed for pain 20 Tablet 4 Active hyoscyamine 0.125 mg sublingual tablet Dissolve 2 tablets by mouth four times daily as needed for abdominal pain 10 Tablet 01/12/2024 12:26 PM CDT 4 Active Encounters Date Type Department Care Team Description 05/02/2025 External Device Data [facility] ABSTRACTION Provider, Abstract 05/01/2025 External Device Data [facility]STRACTION Provider, Abstract from Last 3 Months Immunizations Immunization Administration Dates Next Due (COMRINATY)(12YR UP) COVID-1 9 VACCINE, MRNA (PF)30 MCG/0.3 ML, IM SYRINGE 04/06/2024 INFLUENZA VACCINE QUADRIVALENT 6 MOS UP [...] ) (1 - 1-dose 75+ series) 2012 INFLUENZA VACCINE (#1) 2025 04/06/2024, 2022 COVID-19 Vaccine (2 - season) 03/05/202509/2023 Insurance RX AETNA Medicare Part D RX AET[employer] Medicare Part D
== END 2025-05-28 13:32 | disposition home or self-care (01) ==
LOC: ANHCARD 13:33
PROVIDERS: PCP Internal Medicine; Visit Provider Internal Medicine
DX: R01.1 Cardiac murmur, unspecified (principal); I35.8 Other nonrheumatic aortic valve disorders
CPT/HCPCS: 93306